=== PATIENT | female | born 1975 | race Caucasian/White ===

== ENCOUNTER 2020-03-11 14:28 | Outpatient (CLI) | payer OTHER | END 2020-03-11 14:29 | disposition home or self-care (01) | LOC: LAB 14:28 | DX: Z53.9 Procedure and treatment not carried out, unspecified reason (principal) ==

== ENCOUNTER 2020-03-18 07:15 | Outpatient (CLI) | payer OTHER ==
--- OUTSIDE RECORDS SUMMARY | 2020-03-24 00:58 | EXTERNAL MEDICAL SUMMARY RPT | Continuity of Care Document ---
:1975 Demographics Phone Unavailable Preferred Language Unknown Marital Status Unknown Sabianist Affiliation Unknown Race Unknown Ethnic Group Unknown Author Organization [place] Address [address] [phone] Phone Support Name Relationship Address Phone CH2[facility] Unavailable Unavailable Unavailable Problems date description facility 2015-10-26 08:39 ENCNTR SCREEN FOR DIS OF THE [facility] BLD/BLD-FORM ORG/IMMUN MECHN 2015-10-26 08:39 ENCOUNTER FOR SCREENING FOR LIPOID i [facility] DISORDERS 2015-12-14 09:04 ABNORMAL RESULTS OF OTHER [facility] ENDOCRINE FUNCTION STUDIES 2020-03-18 07:15 ENCNTR FOR NEW ORDER CLERK EXAM (GENERAL) [facility] (ROUTINE) W/O ABN FINDINGS Social History date description facility [id number]
[2020-03-24 11:52] LABS: HDL LARGE 6874 nmol/L (>6729); LDL PARTICLE NUMBER 855 nmol/L (<1138); LDL PATTERN A Pattern (A); LDL PEAK SIZE 218.1 Angstrom (>222.9); LDL SMALL 142 nmol/L (<142)
== END 2020-03-18 07:16 | disposition home or self-care (01) ==
LOC: LAB.S 07:15
DX: Z01.419 Encounter for gynecological examination (general) (routine) without abnormal findings (principal)
CPT/HCPCS: 36415; 81599; 83704

== ENCOUNTER 2020-04-02 08:00 | Outpatient (CLI) | payer OTHER ==
[2020-04-02 14:27] LABS: BASOPHILS % (AUTO) 0.5 %; EOSINOPHILS # (AUTO) 0.1 10^3/uL (0.0-0.7); EOSINOPHILS % (AUTO) 2.1 %; HGB - HEMOGLOBIN 14.3 g/dL (12.0-16.0); LYMPHOCYTES # (AUTO) 1.3 10^3/uL (1.5-3.5); LYMPHOCYTES % (AUTO) 32.4 %; MEAN CORPUSCULAR HEMOGLOBIN 33.1 pg (27.0-31.0); MEAN CORPUSCULAR HGB CONC 33.1 g/dL (32.0-36.0); MEAN PLATELET VOLUME 11.5 fL (7.9-10.8); MONOCYTES # (AUTO) 0.3 10^3/uL (0.0-1.0); NEUTROPHILS # (AUTO) 2.2 10^3/uL (1.5-6.6); NEUTROPHILS % (AUTO) 56.7 %; PLT - PLATELET COUNT 182 10^3/uL (130-450); RED BLOOD COUNT 4.32 10^6/uL (4.20-5.40); WHITE BLOOD COUNT 3.9 x10^3/uL (4.8-10.8)
[2020-04-02 15:14] LABS: ALBUMIN 4.4 g/dL (3.2-5.5); ALKALINE PHOSPHATASE 37 IU/L (42-121); ALT ALANINE AMINOTRANSFERASE 16 IU/L (10-60); AST ASPARTATE AMINOTRANSFERASE 18 IU/L (10-42); BILIRUBIN,TOTAL 1.1 mg/dL (0.2-1.0); BUN - BLOOD UREA NITROGEN 17 mg/dL (6-20); CALCIUM 9.1 mg/dL (8.5-10.3); CARBON DIOXIDE - CO2 28 mmol/L (21-32); CHLORIDE 101 mmol/L (101-111); CHOL/HDL RATIO 2.5 (<4.4); CHOLESTEROL 134 mg/dL; CREATININE 0.9 mg/dL (0.4-1.0); GLUCOSE 86 mg/dL (70-100); HDL CHOLESTEROL 53 mg/dL; LDL CHOLESTEROL,CALCULATED 68 mg/dL; LDL/HDL RATIO 1.3 (<4.4); TOTAL PROTEIN 6.6 g/dL (6.7-8.2); VLDL CHOLESTEROL 13 mg/dL
[2020-04-02 15:31] LABS: THYROID STIMULATING HORMONE 1.11 uIU/mL (0.34-5.60)
[2020-04-02 15:33] LABS: FREE T4 (FREE THYROXINE) 1.17 ng/dL (0.58-1.64)
== END 2020-04-02 23:59 | disposition home or self-care (01) ==
LOC: LAB.S 08:00
PROVIDERS: ATTEND Nurse Practitioner Family
DX: Z01.419 Encounter for gynecological examination (general) (routine) without abnormal findings (principal)
CPT/HCPCS: 80053; 80061; 83721; 84439; 84443; 85025

== ENCOUNTER 2020-05-10 07:01 | Outpatient (CLI) | payer OTHER ==
[2020-05-10 16:03] LABS: BASOPHILS % (AUTO) 0.5 %; EOSINOPHILS # (AUTO) 0.1 10^3/uL (0.0-0.7); EOSINOPHILS % (AUTO) 1.1 %; HCT - HEMATOCRIT 43.8 % (37.0-47.0); HGB - HEMOGLOBIN 13.9 g/dL (12.0-16.0); LYMPHOCYTES # (AUTO) 1.3 10^3/uL (1.5-3.5); MEAN CORPUSCULAR HEMOGLOBIN 31.7 pg (27.0-31.0); MEAN CORPUSCULAR HGB CONC 31.7 g/dL (32.0-36.0); MEAN PLATELET VOLUME 11.3 fL (7.9-10.8); MONOCYTES # (AUTO) 0.4 10^3/uL (0.0-1.0); MONOCYTES % (AUTO) 7.7 %; NEUTROPHILS # (AUTO) 3.7 10^3/uL (1.5-6.6); NEUTROPHILS % (AUTO) 66.2 %; PLT - PLATELET COUNT 202 10^3/uL (130-450); RED BLOOD COUNT 4.38 10^6/uL (4.20-5.40); RED CELL DISTRIBUTION WIDTH 12.9 % (12.0-15.0); WHITE BLOOD COUNT 5.6 x10^3/uL (4.8-10.8)
[2020-05-10 16:18] LABS: CREATININE 0.8 mg/dL (0.4-1.0); TOTAL PROTEIN 6.5 g/dL (6.7-8.2)
== END 2020-05-10 07:02 | disposition home or self-care (01) ==
LOC: LAB.S 07:01
PROVIDERS: ATTEND Nurse Practitioner Family
DX: R79.9 Abnormal finding of blood chemistry, unspecified (principal)
CPT/HCPCS: 36415; 82565; 84075; 84155; 85025

== ENCOUNTER 2020-06-04 08:32 | Outpatient (CLI) | payer OTHER ==
[2020-06-04 15:57] LABS: % IRON SATURATION 29 % (20-50); CRP - C-REACTIVE PROTEIN < 1.0 mg/dL (0-1.0); IRON 109 ug/dL (28-170); LIPASE 31 U/L (22-51); TOTAL IRON BINDING CAPACITY 382 ug/dL (250-450); TRANSFERRIN 273 mg/dL (192-382)
[2020-06-04 16:04] LABS: THYROID STIMULATING HORMONE 1.02 uIU/mL (0.34-5.60)
[2020-06-04 16:07] LABS: FREE T3 4.41 pg/mL (2.5-3.9)
[2020-06-04 16:12] LABS: FREE T4 (FREE THYROXINE) 1.1 ng/dL (0.58-1.64)
[2020-06-04 16:14] LABS: FERRITIN 37.8 ng/mL (11.0-306.8)
[2020-06-05 11:16] LABS: HOMOCYSTEINE 5.1 umol/L (<10.4)
[2020-06-08 04:33] LABS: THYROID PEROXIDASE ANTIBODIES <1 IU/mL (<9)
== END 2020-06-04 08:33 | disposition home or self-care (01) ==
LOC: LAB.S 08:32
DX: E55.9 Vitamin D deficiency, unspecified (principal); E87.6 Hypokalemia; E78.6 Lipoprotein deficiency; E53.8 Deficiency of other specified B group vitamins; L71.9 Rosacea, unspecified; R74.8 Abnormal levels of other serum enzymes; D64.9 Anemia, unspecified; K90.9 Intestinal malabsorption, unspecified
CPT/HCPCS: 36415; 82306; 82607; 82728; 82746; 82784; 83090; 83516; 83540; 83690; 84439; 84443; 84466; 84481; 85651; 86140; 86256; 86376; 86800

== ENCOUNTER 2020-08-19 09:02 | Outpatient (CLI) | payer OTHER ==
[2020-08-19 14:53] LABS: CHOL/HDL RATIO 2.2 (<4.4); CHOLESTEROL 140 mg/dL; HDL CHOLESTEROL 63 mg/dL; LDL CHOLESTEROL,CALCULATED 66 mg/dL; TRIGLYCERIDES 56 mg/dL; VLDL CHOLESTEROL 11 mg/dL
== END 2020-08-19 09:03 | disposition home or self-care (01) ==
LOC: LAB.S 09:02
PROVIDERS: ATTEND Nurse Practitioner
DX: E78.6 Lipoprotein deficiency (principal)
CPT/HCPCS: 36415; 80061; 83721

== ENCOUNTER 2020-09-24 15:05 | Outpatient (CLI) | payer OTHER ==
[2020-09-24 20:07] LABS: CHOL/HDL RATIO 2.4 (<4.4); CHOLESTEROL 150 mg/dL; HDL CHOLESTEROL 63 mg/dL; LDL CHOLESTEROL,CALCULATED 72 mg/dL; LDL/HDL RATIO 1.1 (<4.4); TRIGLYCERIDES 75 mg/dL; VLDL CHOLESTEROL 15 mg/dL
== END 2020-09-24 15:06 | disposition home or self-care (01) ==
LOC: LAB.S 15:05
PROVIDERS: ATTEND Nurse Practitioner
DX: E78.6 Lipoprotein deficiency (principal)
CPT/HCPCS: 36415; 80061; 83721

== ENCOUNTER 2021-01-10 07:01 | Outpatient (CLI) | payer OTHER ==
[2021-01-10 14:53] LABS: ALBUMIN 4.6 g/dL (3.2-5.5); ALBUMIN/GLOBULIN RATIO 1.8 (1.0-2.2); ALKALINE PHOSPHATASE 42 IU/L (42-121); ALT ALANINE AMINOTRANSFERASE 21 IU/L (10-60); AST ASPARTATE AMINOTRANSFERASE 21 IU/L (10-42); BILIRUBIN,TOTAL 0.9 mg/dL (0.2-1.0); BUN - BLOOD UREA NITROGEN 14 mg/dL (6-20); CALCIUM 9.6 mg/dL (8.5-10.3); CARBON DIOXIDE - CO2 30 mmol/L (21-32); CHLORIDE 101 mmol/L (101-111); CHOL/HDL RATIO 2.3 (<4.4); CHOLESTEROL 166 mg/dL; CREATININE 0.8 mg/dL (0.4-1.0); GFR - MDRD 78 (>89); GLUCOSE 92 mg/dL (70-100); HDL CHOLESTEROL 73 mg/dL; LDL CHOLESTEROL,CALCULATED 84 mg/dL; LDL/HDL RATIO 1.2 (<4.4); POTASSIUM 3.7 mmol/L (3.5-5.0); SODIUM 140 mmol/L (135-145); TOTAL PROTEIN 7.1 g/dL (6.7-8.2); TRIGLYCERIDES 44 mg/dL; VLDL CHOLESTEROL 9 mg/dL
[2021-01-10 15:00] LABS: T4 (THYROXINE) 6.85 ug/dL (6.09-12.23)
[2021-01-10 15:03] LABS: THYROID STIMULATING HORMONE 0.93 uIU/mL (0.34-5.60)
[2021-01-10 15:04] LABS: BASOPHILS % (AUTO) 0.4 %; EOSINOPHILS # (AUTO) 0.1 10^3/uL (0.0-0.7); EOSINOPHILS % (AUTO) 1.1 %; HCT - HEMATOCRIT 45.7 % (37.0-47.0); HGB - HEMOGLOBIN 14.9 g/dL (12.0-16.0); LYMPHOCYTES # (AUTO) 1.3 10^3/uL (1.5-3.5); LYMPHOCYTES % (AUTO) 22.1 %; MEAN CORPUSCULAR HGB CONC 32.6 g/dL (32.0-36.0); MEAN CORPUSCULAR VOLUME 101.1 fL (81.0-99.0); MEAN PLATELET VOLUME 11.3 fL (7.9-10.8); MONOCYTES # (AUTO) 0.4 10^3/uL (0.0-1.0); MONOCYTES % (AUTO) 6.3 %; NEUTROPHILS % (AUTO) 69.7 %; PLT - PLATELET COUNT 195 10^3/uL (130-450); RED BLOOD COUNT 4.52 10^6/uL (4.20-5.40); RED CELL DISTRIBUTION WIDTH 12.8 % (12.0-15.0); WHITE BLOOD COUNT 5.7 x10^3/uL (4.8-10.8)
[2021-01-10 16:02] LABS: THYROID STIMULATING HORMONE 0.88 uIU/mL (0.34-5.60)
== END 2021-01-10 07:02 | disposition home or self-care (01) ==
LOC: LAB.S 07:01
PROVIDERS: ATTEND Nurse Practitioner
DX: E27.40 Unspecified adrenocortical insufficiency (principal); G47.9 Sleep disorder, unspecified; E55.9 Vitamin D deficiency, unspecified; R94.6 Abnormal results of thyroid function studies; R53.83 Other fatigue; R74.8 Abnormal levels of other serum enzymes; D64.9 Anemia, unspecified
CPT/HCPCS: 36415; 80053; 80061; 82306; 83721; 84436; 84443; 84480; 85025

== ENCOUNTER 2021-04-22 07:06 | Outpatient (CLI) | payer OTHER ==
[2021-04-22 17:28] LABS: CHOL/HDL RATIO 2.2 (<4.4); CHOLESTEROL 150 mg/dL; HDL CHOLESTEROL 67 mg/dL; LDL CHOLESTEROL,CALCULATED 75 mg/dL; LDL/HDL RATIO 1.1 (<4.4); TRIGLYCERIDES 40 mg/dL; VLDL CHOLESTEROL 8 mg/dL
== END 2021-04-22 07:07 | disposition home or self-care (01) ==
LOC: LAB.S 07:06
PROVIDERS: ATTEND Nurse Practitioner
DX: E87.6 Hypokalemia (principal); E75.6 Lipid storage disorder, unspecified; L71.9 Rosacea, unspecified; L21.0 Seborrhea capitis; D64.9 Anemia, unspecified; E55.9 Vitamin D deficiency, unspecified; D53.8 Other specified nutritional anemias; R20.8 Other disturbances of skin sensation
CPT/HCPCS: 36415; 80061; 83721